=== PATIENT | male | born 1960 | race Caucasian/White ===

== ENCOUNTER 2019-06-22 00:49 | Observation (INO) | payer BC ==
[2019-06-22 01:40] LABS: ABSOLUTE BASOPHILS # (AUTO) 0.1 10^3/uL (0.0-0.2); ABSOLUTE EOSINOPHILS # (AUTO) 0.4 10^3/uL (0.0-0.6); ABSOLUTE NEUT (AUTO) 5.1 10^3/uL (1.7-8.2); BASOPHILS % (AUTO) 0.9 % (0-2); EOSINOPHILS % (AUTO) 4.4 % (0-6); HEMATOCRIT 44.6 % (37.9-51.0); HEMOGLOBIN 15.2 g/dL (13.5-17.0); LYMPHOCYTES % (AUTO) 31.5 % (13-45); MEAN CORPUSCULAR HEMOGLOBIN 31.2 pg (27.0-33.4); MEAN CORPUSCULAR HGB CONC 34.2 g/dL (32.0-36.0); MEAN CORPUSCULAR VOLUME 91 fl (80-97); MONOCYTES % (AUTO) 10.7 % (3-13); PLATELET COUNT 227 10^3/uL (150-450); RED BLOOD COUNT 4.88 10^6/uL (4.35-5.55); RED CELL DISTRIBUTION WIDTH 13.7 % (11.5-14.0); SEGMENTED NEUTROPHILS % (AUTO) 52.5 % (42-78); TOTAL CELLS COUNTED % (AUTO) 100 %; WHITE BLOOD COUNT 9.7 10^3/uL (4.0-10.5)
[2019-06-22 01:44] LABS: INTERNATIONAL RATION (INR) 0.95
[2019-06-22 01:45] LABS: PARTIAL THROMBOPLASTIN TIME 26.9 SEC (23.5-35.8)
[2019-06-22 01:47] LABS: PROTHROMBIN TIME 12.7 SEC (11.4-15.4)
--- NOTE | 2019-06-22 01:53 | ER Document Report ---
ED Alteplase Inc/Exc Criteria - Date/Time patient last known well: Date/Time: 06-22-2019, 00:50 - Inclusion Criteria: 1: Patient presented to ED within 3 hours of acute ischemic stroke symptom onset? -: No 2: Did baseline CT exclude intracranial hemorrhage and/or other risk factors? 3: Is the age of the patient 18 years of age or greater? -: Yes : If any of the above questions are answered "NO" then stop, patient is not a candidate for Alteplase, : If all of the above questions are answered "YES" then continue with Ex clusion Criteria. - Exclusion Criteria: 1: Is there evidence of intracranial hemorrhage on baseline CT? 2: Is there suspicion of subarachnoid hemorrhage (even if CT negative)? 3: Is there a history of serious head trauma, recent previous stroke or [place] within 3 months? 4: Does the patient have a clinical presentation consistent with [place] or post-[place] pericarditis? 5: Is there history of intracranial hemorrhage? 6: On repeated measurement is Systolic BP greater than 185mmHg or Diastolic BP greater that 110 mmHg and is aggressive treatment needed to reduce blood pressure to these limits (e.g. constant infusion of an anti-hypertensive)? 7: Did the patient awake with stroke symptoms? 8: Has the patient had a lumbar puncture or an arterial puncture at a non- compressile site within 7 days? 9: With in the last 14 days did the patient have surgery or major trauma? 10: Is the patient or less than 2 weeks? 11: Was there any active bleeding or acute trauma? 12: Does the patient have intracranial neoplasm, arteriovenous malformation or aneurysm? 13: Does the patient have abnormal glucose (less than 50 or greater than 400mg/dl)? Record glucose in Comment. 14: Patient has rapidly improving symptoms at the time Alteplase is to be Administered. 15: Does the patient have any risks for bleeding, including but not limited to: a.: Current use of Coumadin with PT greater than 15 seconds or INR greater than 1.7. b.: Current use of Pradaxa (Dabigatran). c.: Heparin administereed within the past 48 hours and PTT elevated. d.: Platelet count less than 100,000/mm. e.: Major surgery or serious trauma within 14 days. f.: Gastrointestinal or gynecological urinary bleeding within 14 days. g.: Myocardial Infarction ([place]) within 3 months. : If the answer to any of the above questions is "YES" then stop, the patient is not a candidate for Alteplase. : If the answer to all of the above questions is "NO" then the patient may be eligible for the Administration of Alteplase. : If the patient is noted to have seizure activity at onset of Stroke symptoms; Consult Neurologist for further evaluation. - The patient is: -: Included and is eligible to receive Alteplase. *Initiate bed placement at higher level of care* Reviewed risks & benefits of thrombolytic therapy: I have reviewed the risks and benefits of thrombolytic therapy with the patient and/or his/her family. -: Excluded and not eligible to receive Alteplase for the above exclusions. -: Excluded and not eligible to receive Alteplase for other reasons (specify in comments): - Diagnosis of TIA: -: Patient presented with transient symptoms that are now resolved and no other neurologic findings are currently present. List symptoms in comments. -: Patient is NOT a candidate for tPA. -: ____(put name in comment) has been consulted for admission and continued evaluation of risk factor assessment.
--- NOTE | 2019-06-22 01:54 | ER Document Report ---
ED Neuro Symptoms/Deficit - General Chief Complaint: S/S of Possible Stroke Stated Complaint: NUMBNESS ON RIGHT SIDE Time Seen by Provider: 06/22/19 01:44 Notes: Patient is a 58-year-old male that comes to the emergency department for chief complaint of strokelike symptoms. Patient states that at 1330 today he started noticing first in his lip and numbness and tingling sensation, then he started noticing the same in his cheek, forehead, right arm, and also right leg. He states that since symptoms onset they have not worsened but they have also not resolved. Outside of the focal numbness he denies any weakness. He denies visual changes, headache. He denies any other symptoms. Past medical history of hypertension, previously medicated but weaned off, does not currently have a primary care provider. He does not report any other medical diagnosis. He denies smoking, reports irregular alcohol, denies recreational drugs. He lives at home with his . TRAVEL OUTSIDE OF THE [place] IN LAST 30 DAYS: No - Related Data Allergies/Adverse Reactions: No Known Allergies Allergy (Unverified 06/22/19 01:22) Past Medical History - General Information source: Patient - Social History Smoking Status: Never Smoker Frequency of alcohol use: Rare Drug Abuse: None Lives with: Family Family History: Reviewed & Not Pertinent Patient has suicidal ideation: No Patient has homicidal ideation: No - Past Medical History Cardiac Medical History: Reports: Hx Hypertension Review of Systems - Review of Systems Constitutional: No symptoms reported EENT: No symptoms reported Cardiovascular: No symptoms reported Respiratory: No symptoms reported Gastrointestinal: No symptoms reported Genitourinary: No symptoms reported Male Genitourinary: No symptoms reported Musculoskeletal: No symptoms reported Skin: No symptoms reported Hematologic/Lymphatic: No symptoms reported Neurological/Psychological: See HPI Physical Exam - Vital signs Vitals: Pulse Ox 96 06/22/19 01:09 - Notes Notes: GENERAL: Alert, interacts well. No acute distress. HEAD: Normocephalic, atraumatic. EYES: Pupils equal, round, and reactive to light. Extraocular movements intact. ENT: Oral mucosa moist, tongue midline. Oropharynx unremarkable. Airway patent. LUNGS: Clear to auscultation bilaterally, no wheezes, rales, or rhonchi. No respiratory distress. HEART: Regular rate and rhythm. No murmur ABDOMEN: Soft, non-tender. Non-distended. Bowel sounds present in all 4 quadrants. GENITOURINARY: Deferred EXTREMITIES: Moves all 4 extremities spontaneously. No edema, normal radial and dorsalis pedis pulses bilaterally. No cyanosis. BACK: no cervical, thoracic, lumbar midline tenderness. No saddle anesthesia, normal distal neurovascular exam. Moves all extremities in full range of motion. NEUROLOGICAL: Alert and oriented x3. Normal speech. Normal [id number] te sting. Normal strength bilaterally. There does appear to be sensation deficit over the right side of the face, right arm especially hand, and also right leg and foot. Normal otherwise. PSYCH: Normal affect, normal mood. SKIN: Warm, dry, normal turgor. No rashes or lesions noted. Course - Re-evaluation Re-evalutation: Patient symptoms are concerning for acute CVA. Symptoms are subtle but persistent. Patient is well outside the window for TPA. He is hypertensive but he will be allowed to remain so with permissive hypertension in setting of suspected ischemic stroke. Chest x-ray unremarkable. CT showing possible old stroke. Remaining work-up unremarkable. Patient without decompensation during his stay and on reevaluation. I discussed with patient, discussed with Dr. De León, will discuss with hospitalist Dr. Tran for admission. Dr. Tran accepts patient for IMCU observation. Patient states appreciation and agreement. - Vital Signs Vital signs: Temp Pulse Resp BP Pulse Ox 60 15 183/95 H 99 06/22/19 01:27 06/22/19 01:27 06/22/19 01:27 06/22/19 01:27 - Laboratory Result Diagrams: 06/22/19 01:15 06/22/19 01:15 - EKG Interpretation by Me Additional EKG results interpreted by me: EKG shows sinus rhythm at a rate of 60, normal axis, QTC of 432. Borderline flipped T waves inferiorly and laterally. No ST segment change abnormalities. ED Alteplase Inc/Exc Criteria - Inclusion Criteria: 1: Patient presented to ED within 3 hours of acute ischemic stroke symptom onset? -: No 2: Did baseline CT exclude intracranial hemorrhage and/or other risk factors? -: Yes 3: Is the age of the patient 18 years of age or greater? -: Yes : If any of the above questions are answered "NO" then stop, patient is not a candidate for Alteplase, : If all of the above questions are answered "YES" then continue with Excl usion Criteria. - Exclusion Criteria: 1: Is there evidence of intracranial hemorrhage on baseline CT? 2: Is there suspicion of subarachnoid hemorrhage (even if CT negative)? 3: Is there a history of serious head trauma, recent previous stroke or [place] within 3 months? 4: Does the patient have a clinical presentation consistent with [place] or post-[place] pericarditis? 5: Is there history of intracranial hemorrhage? 6: On repeated measurement is Systolic BP greater than 185mmHg or Diastolic BP greater that 110 mmHg and is aggressive treatment needed to reduce blood pressure to these limits (e.g. constant infusion of an anti-hypertensive)? 7: Did the patient awake with stroke symptoms? 8: Has the patient had a lumbar puncture or an arterial puncture at a non- compressile site within 7 days? 9: With in the last 14 days did the patient have surgery or major trauma? 10: Is the patient or less than 2 weeks? 11: Was there any active bleeding or acute trauma? 12: Does the patient have intracranial neoplasm, arteriovenous malformation or aneurysm? 13: Does the patient have abnormal glucose (less than 50 or greater than 400mg/dl)? Record glucose in Comment. 14: Patient has rapidly improving symptoms at the time Alteplase is to be Administered. 15: Does the patient have any risks for bleeding, including but not limited to: a.: Current use of Coumadin with PT greater than 15 seconds or INR greater than 1.7. b.: Current use of Pradaxa (Dabigatran). c.: Heparin administereed within the past 48 hours and PTT elevated. d.: Platelet count less than 100,000/mm. e.: Major surgery or serious trauma within 14 days. f.: Gastrointestinal or gynecological urinary bleeding within 14 days. g.: Myocardial Infarction ([place]) within 3 months. : If the answer to any of the above questions is "YES" then stop, the patient is not a candidate for Alteplase. : If the answer to all of the above questions is "NO" then the patient may be eligible for the Administration of Alteplase. : If the patient is noted to have seizure activity at onset of Stroke symptoms; Consult Neurologist for further evaluation. - The patient is: -: Included and is eligible to receive Alteplase. *Initiate bed placement at [facility] level of care* Reviewed risks & benefits of thrombolytic therapy: I have reviewed the risks and benefits of thrombolytic therapy with the patient and/or his/her family. -: Excluded and not eligible to receive Alteplase for the above exclusions. -: Excluded and not eligible to receive Alteplase for other reasons (specify in comments): - Diagnosis of TIA: -: Patient presented with transient symptoms that are now resolved and no other neurologic findings are currently present. List symptoms in comments. -: Patient is NOT a candidate for tPA. -: ____(put name in comment) has been consulted for admission and continued evaluation of risk factor assessment. ED NIH Stroke Scale - NIH Stroke Scale When completed:: Before Alteplase *: 1. NIH scale should be completed with appropriate accompanying assessment tools. *: 2. The NIH should reflect what the patient is capable of doing and should not be coached by the clinician. 1a. Level of Consciousness: 0=Alert;keenly responsive -: 1=Drowsy -: 2=Obtunded -: 3=Coma/unresponsive or reflex to noxious stimuli. 1a. Responses: 0 1b. Orientation Questions: a. What month is it? -: b. How old are you? -: 0=Answers both questions correctly. -: 1=Answers one question correctly or patient is intubated or has orotracheal trauma. -: 2=Answers neither question correctly. 1b. Responses: 0 1c. Response to commands: a. Open and close eyes? -: b. Journeyman Carpenter and release hand? -: Credit is given despite weakness. Demonstration of task is permitted. Substitute command if hands cannot be used. -: 0=Performs both tasks correctly -: 1=Performs one task correctly -: 2=Performs neither task correctly 1c. Responses: 0 2. Gaze: Establish eye contact and instruct patient to "Follow my finger" -: 0=Normal -: 1=Partial gaze palsy. Gaze is abnormal in one or both eyes, but where forced deviation or total gaze paresis is not present. -: 2=Forced deviation or total gaze paresis. 2. Responses: 0 3. Visual Martinez: Sees fingers in all four quadrants. -: 0=No visual loss. -: 1=Partial hemianopsia. -: 2=Complete hemianopsia. -: 3=Bilateral hemianopsia (including Cortical blindness) 3. Responses: 0 4. Facial Movement: Instruct patient to: -: a. Show me your teeth -: b. Raise your eyebrows -: c. Close your eyes -: d. Smile -: 0=Normal symmetrical movement -: 1=Minor paralysis (flattened nasolabial fold, asymmetry on smiling). -: 2=Partial paralysis (total or near total paralysis of lower face). -: 3=Complete paralysis of upper and lower face 4. Responses: 0 5. Motor functions (left arm): Alternate sides and extend each arm with palms down (90 degrees if sitting or 45 degrees for supine). -: 0=No drift;limb holds for full 10 seconds. -: 1=Drift; limb holds but drifts down before full 10 seconds, but does not hit bed. -: 2=Some effort against gravity; limb cannot get to or maintain position. -: 3=No effort against gravity; limb falls. -: 4=No movement. -: UN=Amputation, joint fusion, explain in comments. 5. Responses (left arm): 0 5. Motor Functions (right arm): Alternate sides and extend each arm with palms down (90 degrees if sitting or 45 degrees for supine). -: 0=No drift;limb holds for full 10 seconds. -: 1=Drift; limb holds but drifts down before full 10 seconds, but does not hit bed. -: 2=Some effort against gravity; limb cannot get to or maintain position. -: 3=No effort against gravity; limb falls. -: 4=No movement. -: UN=Amputation, joint fusion, explain in comments. 5. Responses (right arm): 0 6. Motor Functions (left leg): With patient lying supine, alternate sides and extend each leg (30 degrees always while supine). -: 0=No drift, leg holds position for full 5 seconds -: 1=Drift; leg falls before full 5 seconds but does not hit bed. -: 2=Some effort against gravity, leg falls to bed but some effort against gravity. -: 3=No effort against gravity, leg falls to bed immediately. -: 4=No movement. -: UN=Amputation, joint fusion; explain in comments. 6. Responses (left leg): 0 6. Motor Functions (right leg): With patient lying supine, alternate sides and extend each leg (30 degrees always while supine). -: 0=No drift, leg holds position for full 5 seconds -: 1=Drift; leg falls before full 5 seconds but does not hit bed. -: 2=Some effort against gravity, leg falls to bed but some effort against gravity. -: 3=No effort against gravity, leg falls to bed immediately. -: 4=No movement. -: UN=Amputation, joint fusion; explain in comments. 6. Responses (right leg): 0 7. Limb Ataxia: With eyes open instruct patient to: -: a. "Touch your finger to your nose". -: b. "Touch your heel to your cooper" -: 0=Absent -: 1=Present in one limb. -: 2=Present in two limbs. -: UN=Amputation or joint fusion; explain in comments. 7. Responses: 0 8. Sensory: Test sensation using pinprick or noxious stimuli. Test as many body parts as possible. -: 0=Normal;no sensory loss -: 1=Mile to moderate sensory loss (patient feels pin prick but is less sharp on affected side). -: 2=Severe or total sensory loss. 8. Responses: 1 9. Best Language: Instruct patient to: -: a. "Describe what you see in this picture." -: b. "Name the items in this picture." -: c. "Read these sentences." -: 0=No aphasia, normal -: 1=Mild to moderate aphasia. -: 2=Severe aphasia -: 3=Mute, global aphasia, no usable speech or auditory comprehension. 9. Responses: 0 10. Articulation, Dysarthia: Instruct patient to: -: "Read these words" or "Repeat these words" -: 0=Normal -: 1=Mild to moderate; patient may slur some words but can be understood without difficulty. -: 2=Severe; patients speech so slurred as to be unintelligible in the absence of dysphasia. -: UN=Intubated or other physical barrier, explain in comments. 10. Responses: 0 11. Extinction or inattention: 0=No abnormality -: 1= Visual, tactile, auditory, spatial, or personal inattention or extinction to bilateral simulation in one or the sensory modalities. -: 2=Profound renae-inattention or renae-inattention to more than one modality; does not recognize own hand. 11. Responses: 0 Total Score: 1 Discharge - Discharge Clinical Impression: Numbness on right side, Essential hypertension Condition: Stable Disposition: ADMITTED OBSERVATION Admitting Provider: Marc (Hospitalist) Unit Admitted: [facility]
[2019-06-22 01:57] LABS: ALBUMIN 4.2 g/dL (3.5-5.0); ALKALINE PHOSPHATASE 62 U/L (38-126); ANION GAP 7 (5-19); ASPARTATE AMINO TRANSFERASE 42 U/L (17-59); BILIRUBIN,DIRECT 0.1 mg/dL (0.0-0.4); BILIRUBIN,TOTAL 0.3 mg/dL (0.2-1.3); BLOOD UREA NITROGEN 13 mg/dL (7-20); CALCIUM 9.7 mg/dL (8.4-10.2); CARBON DIOXIDE 30 mmol/L (22-30); CHLORIDE 104 mmol/L (98-107); CREATINE KINASE 347 U/L (55-170); GLUCOSE 109 mg/dL (75-110); POTASSIUM 3.9 mmol/L (3.6-5.0)
[2019-06-22 02:09] LABS: CREATINE KINASE MB 4.71 ng/mL (<4.55)
[2019-06-22 02:10] LABS: TROPONIN I < 0.012 ng/mL
--- NOTE | 2019-06-22 02:49 | RADIOLOGY REPORT (SQ) ---
CT HEAD WITHOUT IV CONTRAST EXAM DATE: 06/22/2019 1:30 AM [employer] HISTORY: Right facial and body numbness. COMPARISON: None. TECHNIQUE: CT scan of the brain without IV contrast. This exam was performed according to our departmental dose-optimization program, which includes automated exposure control, adjustment of the mA and/or kV according to patient size and/or use of iterative reconstruction technique. FINDINGS: The ventricles, cisterns, and sulci are age-appropriate. 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 No evidence of acute infarction, intracranial hemorrhage, extra-axial fluid collection, or midline shift. Mild mucosal disease in the left sphenoid sinus. No depressed skull fracture. IMPRESSION: 1. No acute intracranial findings. 2. Sinus mucosal inflammatory disease.
[2019-06-22] MEDS ORDERED: ACETAMINOPHEN 325 MG TABLET PO PRN (03:45)
[2019-06-22] MEDS ORDERED: MAGNESIUM HYDROXIDE SUSP 30 ML UDCUP PO PRN (03:45)
[2019-06-22] MEDS ORDERED: DOCUSATE SODIUM 100 MG CAPSULE PO PRN (03:45)
[2019-06-22] MEDS ORDERED: ATORVASTATIN CALCIUM 80 MG TABLET PO ONE (04:00)
--- NOTE | 2019-06-22 04:39 | RADIOLOGY REPORT (SQ) ---
Chest single view on 06/22/2019 at 3:29 AM CLINICAL INDICATION: CVA workup, right-sided numbness COMPARISON: None FINDINGS: Heart is borderline in size. Mildly tortuous aorta is noted. The lungs are clear. Hilar and mediastinal contours are within normal limits. Pulmonary vascularity is within normal limits. IMPRESSION: No acute disease.
--- NOTE | 2019-06-22 06:09 | PDOC H&P ---
History of Present Illness Admission Date/PCP: 06/22/19 04:07 Patient complains of: Right-sided numbness History of Present Illness: KERRY ASCENCIO is a 58 year old male with a past medical history of hypertension without current medication who presents with 12 hours of numbness to the right side of his body. He denies palpitations, difficulty swallowing, word finding difficulty, focal weakness or previous episode. He denies recent medication use and is otherwise felt well. In the emergency room he is found to have uncontrolled hypertension with persistent symptoms. CT head is suggestive of old infarct. He is referred to the hospitalist for admission. Past Medical History Cardiac Medical History: Reports: Hypertension Pulmonary Medical History: Reports: None EENT Medical History: Reports: None Neurological Medical History: Reports: None Renal/ Medical History: Reports: None Malignancy Medical History: Reports: None GI Medical History: Reports: None Musculoskeltal Medical History: Reports: None Skin Medical History: Reports: None Psychiatric Medical History: Reports: None Traumatic Medical History: Reports: None Hematology: Reports: None Infectious Medical History: Reports: None Past Surgical History Past Surgical History: Reports: None Social History Information Source: Patient Smoking Status: Never Smoker Frequency of Alcohol Use: None Drugs: None - Advance Directive Resuscitation Status: Full Code Family History Family History: Hypertension Parental Family History Reviewed: Yes Children Family History Reviewed: Yes Sibling(s) Family History Reviewed.: Yes Medication/Allergy Home Medications: No Home Medications 06/22/19 Allergies/Adverse Reactions: No Known Allergies Allergy (Unverified 06/22/19 01:22) Review of Systems Constitutional: ABSENT: chills, fever(s), headache(s), weight gain, weight loss Eyes: ABSENT: visual disturbances Ears: ABSENT: hearing changes Cardiovascular: ABSENT: chest pain, dyspnea on exertion, edema, orthropnea, palpitations Respiratory: ABSENT: cough, hemoptysis Gastrointestinal: ABSENT: abdominal pain, constipation, diarrhea, hematemesis, hematochezia, nausea, vomiting Genitourinary: ABSENT: dysuria, hematuria Musculoskeletal: ABSENT: joint swelling Integumentary: ABSENT: rash, wounds Neurological: ABSENT: abnormal gait, abnormal speech, confusion, dizziness, focal weakness, syncope Psychiatric: ABSENT: anxiety, depression, homidical ideation, suicidal ideation Endocrine: ABSENT: cold intolerance, heat intolerance, polydipsia, polyuria Hematologic/Lymphatic: ABSENT: easy bleeding, easy bruising Physical Exam Vital Signs: Temp Pulse Resp BP Pulse Ox 98.3 F 62 14 158/103 H 97 06/22/19 04:56 06/22/19 04:34 06/22/19 05:01 06/22/19 05:01 06/22/19 05:01 Intake & Output 06/20/19 06/21/19 06/22/19 11:59 11:59 11:59 Weight 89.8 kg General appearance: PRESENT: no acute distress, well-developed, well-nourished Head exam: PRESENT: atraumatic, normocephalic Eye exam: PRESENT: conjunctiva pink, EOMI, PERRLA. ABSENT: scleral icterus Ear exam: PRESENT: normal external ear exam Mouth exam: PRESENT: moist, tongue midline Neck exam: ABSENT: carotid bruit, JVD, lymphadenopathy, thyromegaly Respiratory exam: PRESENT: clear to auscultation rich. ABSENT: rales, rhonchi, wheezes Cardiovascular exam: PRESENT: RRR. ABSENT: diastolic murmur, rubs, systolic murmur Pulses: PRESENT: normal dorsalis pedis pul Vascular exam: PRESENT: normal capillary refill GI/Abdominal exam: PRESENT: normal bowel sounds, soft. ABSENT: distended, guarding, mass, organolmegaly, rebound, tenderness Rectal exam: PRESENT: deferred Extremities exam: PRESENT: full ROM. ABSENT: calf tenderness, clubbing, pedal edema Neurological exam: PRESENT: alert, awake, oriented to person, oriented to place, oriented to time, oriented to situation, CN II-XII grossly intact. ABSENT: motor sensory deficit Psychiatric exam: PRESENT: appropriate affect, normal mood. ABSENT: homicidal ideation, suicidal ideation Skin exam: PRESENT: dry, intact, warm. ABSENT: cyanosis, rash Results Laboratory Results: 06/22/19 01:15 06/22/19 01:15 06/22/19 06/22/19 06/22/19 01:15 01:15 01:15 WBC 9.7 RBC 4.88 Hgb 15.2 Hct 44.6 MCV 91 MCH 31.2 MCHC 34.2 RDW 13.7 Plt Count 227 Seg Neutrophils % 52.5 Sodium 141.3 Potassium 3.9 Chloride 104 Carbon Dioxide 30 Anion Gap 7 BUN 13 Creatinine 1.00 Est GFR ( Amer) > 60 Glucose 109 Calcium 9.7 Total Bilirubin 0.3 AST 42 Alkaline Phosphatase 62 Total Protein 8.0 Albumin 4.2 TSH 4.94 H 06/22/19 06/22/19 01:15 01:15 Creatine Kinase 347 H CK-MB (CK-2) 4.71 H Troponin I < 0.012 Impressions: Head CT 06/22/19 01:30 IMPRESSION: 1. No acute intracranial findings. 2. Sinus mucosal inflammatory disease. Chest X-Ray 06/22/19 03:06 IMPRESSION: No acute disease. Assessment and Plan - Diagnosis (1) TIA (transient ischemic attack) Is this a current diagnosis for this admission?: Yes Plan: Observation with CVA care set. Follow-up MRI, carotid Doppler, TSH and lipid profile. Aspirin and to ordered (2) Essential hypertension Is this a current diagnosis for this admission?: Yes Plan: Permissive hypertension (3) Numbness on right side Is this a current diagnosis for this admission?: Yes Plan: Secondary #1 - Time Time Spent with patient: 25-34 minutes - Inpatient Certification Medical Necessity: Need Close Monitoring Due to Risk of Patient Decompensation
[2019-06-22 07:16] LABS: CHOLESTEROL 173.62 mg/dL (0-200); TRIGLYCERIDES 100 mg/dL (<150)
[2019-06-22 07:26] LABS: DIRECT LDL 120 mg/dL (<100)
--- NOTE | 2019-06-22 12:05 | EKG REPORT ---
SEVERITY:- ABNORMAL ECG - SINUS RHYTHM BORDERLINE LEFT AXIS DEVIATION PROMINENT 'U' WAVES.CHECK POTASSIUM : Confirmed by: Yulissa Da Silva MD 22-Jun-2019 12:04:44
[2019-06-22] MEDS: HEPARIN SOD (PORCINE) 5,000 UNIT/ML 1 ML VIAL SUBCUT SCH ×3 (12:43→21:57)
--- NOTE | 2019-06-22 14:30 | RADIOLOGY REPORT (SQ) ---
EXAM DESCRIPTION: MRI HEAD WITHOUT COMPLETED DATE/TIME: 06/22/2019 12:20 pm REASON FOR STUDY: Left side numb COMPARISON: None. TECHNIQUE: Multiplanar imaging includes non-contrasted T1, T2, FLAIR, and Diffusion with ADC map seq uences. Images stored on PACS. LIMITATIONS: None. FINDINGS: ANATOMY: No anomalies. Normal vascular flow voids. Pituitary fossa normal. CSF SPACES: Normal in size and contour. No hemorrhage. CEREBRUM: A few high-signal intensity lesions scattered throughout the white matter on FLAIR imaging with distribution suggesting chronic micro-vascular ischemic change. Sulci and gyri normal in size a nd contour. No evidence of hemorrhage, mass or extraaxial fluid collection. POSTERIOR FOSSA: No signal alteration. No hemorrhage. No edema, masses or mass effect. Internal willi tory canals, cerebello-pontine angles, mastoids normal. DIFFUSION: 5 mm focus of abnormal high signal on diffusion in the left thalamus. ORBITS: No masses. Globes normal. PARANASAL SINUSES: No fluid levels. Mucosa normal. OTHER: No other significant finding. IMPRESSION: Small nonhemorrhagic lacunar infarct left thalamus. EVIDENCE OF ACUTE STROKE: YES. LEFT MCA. TECHNICAL DOCUMENTATION: JOB ID: [id number] [employer]- All Rights Reserved Reading location - IP/workstation name: [email or web address]
[2019-06-22] MEDS ORDERED: ATORVASTATIN CALCIUM 80 MG TABLET PO SCH (22:00)
[2019-06-23] MEDS: HEPARIN SOD (PORCINE) 5,000 UNIT/ML 1 ML VIAL SUBCUT SCH (06:27)
[2019-06-23 07:49] VITALS: BP 166/84
[2019-06-23] MEDS ORDERED: LISINOPRIL 10 MG TABLET PO SCH (10:00)
[2019-06-23] MEDS ORDERED: ASPIRIN 81 MG TABLET, ENT COATED PO SCH (10:00)
--- NOTE | 2019-06-23 17:13 | PDOC DISCHARGE SUMMARY ---
Impression - Admit/DC Date/PCP Admission Date/Primary Care Provider: 06/22/19 04:07 Discharge Date: 06/23/19 - Discharge Diagnosis (1) Acute ischemic stroke Is this a current diagnosis for this admission?: Yes (2) Essential hypertension Is this a current diagnosis for this admission?: Yes - Additional Information Resuscitation Status: Full Code Discharge Diet: Cardiac Discharge Activity: Activity As Tolerated, Balance Activity w/Rest Referrals: ELENA MILAN MD [COMMUNITY BASED STAFF] - 06/26/19 9:30 am (1-2 weeks) Prescriptions: Atorvastatin Calcium [Lipitor 20 mg Tablet] 20 mg PO QHS #30 tablet Lisinopril [Prinivil 10 mg Tablet] 10 mg PO DAILY #30 tablet Home Medications: Aspirin [Ecotrin 81 mg EC Tablet] 81 mg PO DAILY tabec 06/23/19 Atorvastatin Calcium [Lipitor 20 mg Tablet] 20 mg PO QHS #30 tablet 06/23/19 Lisinopril [Prinivil 10 mg Tablet] 10 mg PO DAILY #30 tablet 06/23/19 History of Present Illiness History of Present Illness: KERRY ASCENCIO is a 58 year old male with a past medical history of hypertension without current medication who presents with 12 hours of numbness to the right side of his body. He denies palpitations, difficulty swallowing, word finding difficulty, focal weakness or previous episode. He denies recent medication use and is otherwise felt well. In the emergency room he is found to have uncontro lled hypertension with persistent symptoms. CT head is suggestive of old infarct. He is referred to the hospitalist for admission. Hospital Course Hospital Course: His symptoms have resolved completely with the exception of a little bit of tingling on his right side. His MRI was positive for a left lacunar thalamic stroke. He was started on aspirin and a statin. We watched his blood pressure and it was elevated after the first 24 hours and so we started him on some lisinopril. He does not have a primary care provider but his and daughter both see Dr. Milan so he requested to follow-up at that office. He did not require any further speech therapy, Occupational Therapy, or physical therapy. His labs and examination were reassuring he was discharged in good condition. Physical Exam Vital Signs: Temp Pulse Resp BP Pulse Ox 97.5 F 67 16 166/84 H 97 06/23/19 10:35 06/23/19 10:35 06/23/19 10:35 06/23/19 08:00 06/23/19 10:35 Intake & Output 06/22/19 06/23/19 06/24/19 06:59 06:59 06:59 Intake Total 1180 Balance 1180 Weight 100 kg 100.6 kg General appearance: PRESENT: no acute distress, cooperative, obese Respiratory exam: PRESENT: clear to auscultation rich, symmetrical, unlabored. ABSENT: accessory muscle use, chest wall tenderness, crackles, prolonged expiratory phas, rhonchi, tachypnea, wheezes Cardiovascular exam: PRESENT: RRR, +S1, +S2 Pulses: PRESENT: normal carotid pulses Vascular exam: PRESENT: normal capillary refill GI/Abdominal exam: PRESENT: normal bowel sounds, soft. ABSENT: distended, guarding, rebound, tenderness Extremities exam: ABSENT: clubbing, pedal edema Musculoskeletal exam: PRESENT: ambulatory, normal inspection. ABSENT: deformity Neurological exam: PRESENT: alert, awake, oriented to person, oriented to place, oriented to situation Psychiatric exam: PRESENT: appropriate affect, normal mood Skin exam: PRESENT: dry, warm Results Laboratory Results: WBC 9.7 10^3/uL (4.0-10.5) 06/22/19 01:15 RBC 4.88 10^6/uL (4.35-5.55) 06/22/19 01:15 Hgb 15.2 g/dL (13.5-17.0) 06/22/19 01:15 Hct 44.6 % (37.9-51.0) 06/22/19 01:15 MCV 91 fl (80-97) 06/22/19 01:15 MCH 31.2 pg (27.0-33.4) 06/22/19 01:15 MCHC 34.2 g/dL (32.0-36.0) 06/22/19 01:15 RDW 13.7 % (11.5-14.0) 06/22/19 01:15 Plt Count 227 10^3/uL (150-450) 06/22/19 01:15 Lymph % (Auto) 31.5 % (13-45) 06/22/19 01:15 [place] % (Auto) 10.7 % (3-13) 06/22/19 01:15 Eos % (Auto) 4.4 % (0-6) 06/22/19 01:15 Baso % (Auto) 0.9 % (0-2) 06/22/19 01:15 Absolute Neuts (auto) 5.1 10^3/uL (1.7-8.2) 06/22/19 01:15 Absolute Lymphs (auto) 3.0 10^3/uL (0.5-4.7) 06/22/19 01:15 Absolute Monos (auto) 1.0 10^3/uL (0.1-1.4) 06/22/19 01:15 Absolute Eos (auto) 0.4 10^3/uL (0.0-0.6) 06/22/19 01:15 Absolute Basos (auto) 0.1 10^3/uL (0.0-0.2) 06/22/19 01:15 Seg Neutrophils % 52.5 % (42-78) 06/22/19 01:15 PT 12.7 SEC (11.4-15.4) 06/22/19 01:15 INR 0.95 06/22/19 01:15 APTT 26.9 SEC (23.5-35.8) 06/22/19 01:15 Sodium 141.3 mmol/L (137-145) 06/22/19 01:15 Potassium 3.9 mmol/L (3.6-5.0) 06/22/19 01:15 Chloride 104 mmol/L (98-107) 06/22/19 01:15 Carbon Dioxide 30 mmol/L (22-30) 06/22/19 01:15 Anion Gap 7 (5-19) 06/22/19 01:15 BUN 13 mg/dL (7-20) 06/22/19 01:15 Creatinine 1.00 mg/dL (0.52-1.25) 06/22/19 01:15 Est GFR ( Amer) > 60 (>60) 06/22/19 01:15 Est GFR (MDRD) Non-Af > 60 (>60) 06/22/19 01:15 Glucose 109 mg/dL (75-110) 06/22/19 01:15 Calcium 9.7 mg/dL (8.4-10.2) 06/22/19 01:15 Total Bilirubin 0.3 mg/dL (0.2-1.3) 06/22/19 01:15 Direct Bilirubin 0.1 mg/dL (0.0-0.4) 06/22/19 01:15 Neonat Total Bilirubin Not Reportable 06/22/19 01:15 Neonat Direct Bilirubin Not Reportable 06/22/19 01:15 Neonat Indirect Bili Not Reportable 06/22/19 01:15 AST 42 U/L (17-59) 06/22/19 01:15 ALT 54 U/L (<50) 06/22/19 01:15 Alkaline Phosphatase 62 U/L (38-126) 06/22/19 01:15 Creatine Kinase 347 U/L (55-170) H 06/22/19 01:15 CK-MB (CK-2) 4.71 ng/mL (<4.55) H 06/22/19 01:15 Troponin I < 0.012 ng/mL 06/22/19 01:15 Total Protein 8.0 g/dL (6.3-8.2) 06/22/19 01:15 Albumin 4.2 g/dL (3.5-5.0) 06/22/19 01:15 Triglycerides 100 mg/dL (<150) 06/22/19 06:46 Cholesterol 173.62 mg/dL (0-200) 06/22/19 06:46 LDL Cholesterol Direct 120 mg/dL (<100) H 06/22/19 06:46 VLDL Cholesterol 20.0 mg/dL (10-31) 06/22/19 06:46 HDL Cholesterol 35 mg/dL (>40) L 06/22/19 06:46 TSH 4.94 uIU/mL (0.47-4.68) H 06/22/19 01:15 06/22/19 01:15 CK-MB (CK-2) 4.71 H Troponin I < 0.012 Impressions: Head MRI 06/22/19 00:00 IMPRESSION: Small nonhemorrhagic lacunar infarct left thalamus. EVIDENCE OF ACUTE STROKE: YES. LEFT MCA. Head CT 06/22/19 01:30 IMPRESSION: 1. No acute intracranial findings. 2. Sinus mucosal inflammatory disease. Chest X-Ray 06/22/19 03:06 IMPRESSION: No acute disease. Plan Time Spent: Greater than 30 Minutes Stroke Is this a Stroke Patient?: Yes Stroke Pt being discharged on Anti-thrombolytic therapy?: Yes Stroke Pt being discharged on Anti-coagulation therapy?: No Reason(s) for not prescribing Anti-coagulation therapy:: Not indicated Stroke Pt being discharged on Statins?: Yes Acute Heart Failure - Is this a Heart Failure Patient?: No
== END 2019-06-23 11:11 | disposition home or self-care (01) ==
LOC: ER 00:49 → EH 04:07 → INTOOBSV 04:07 → 3W 05:35
PROVIDERS: ADMIT Internal Medicine; ATTEND Internal Medicine
DX: I63.81 Other cerebral infarction due to occlusion or stenosis of small artery (principal); R20.2 Paresthesia of skin; R20.0 Anesthesia of skin; I10 Essential (primary) hypertension; E66.9 Obesity, unspecified; Z79.82 Long term (current) use of aspirin; Z79.899 Other long term (current) drug therapy; Z82.49 Family history of ischemic heart disease and other diseases of the circulatory system
CPT/HCPCS: 93005; 99285; 36415; 82553; 82550; 84443; 85025; 85610; 85730; 80053; 84484; 80061; 70551; 71045; 70450; 93010; 92522; G0378 ×3; J1644 ×2; J3490 ×2

== ENCOUNTER → 2019-07-01 | Outpatient (CLI) | payer BC ==
--- NOTE | 2019-07-01 09:04 | RADIOLOGY REPORT (SQ) ---
EXAM DESCRIPTION: CAROTID DOPPLER COMPLETED DATE/TIME: 07/01/2019 8:42 am REASON FOR STUDY: CVA I63.9 CEREBRAL INFARCTION, UNSPECIFIED COMPARISON: None. TECHNIQUE: Grayscale ultrasound, Doppler velocity and spectra, and color Doppler images acquired of the extra-cranial carotid and vertebral arteries. Images stored on PACS. LIMITATIONS: None. FINDINGS: RIGHT CAROTID CCA Velocities: Within normal limits. ICA Velocities Peak systolic 115 cm/s. End diastolic 42 cm/s. Proximal ICA/CCA peak systolic ratio 1.0. Mild intimal thickening in the distal common carotid artery. LEFT CAROTID CCA Velocities: Within normal limits. ICA Velocities Peak systolic 89 cm/s. End diastolic 33 cm/s. Proximal ICA/CCA peak systolic ratio 1.1. There is intimal thickening. VERTEBRAL ARTERIES: Antegrade flow. Normal waveforms. SUBCLAVIAN ARTERIES: No finding. OTHER: No other significant finding. IMPRESSION: NO HEMODYNAMICALLY SIGNIFICANT STENOSIS. COMMENT: Quality ID #[id number]: Velocity criteria are extrapolated from the diameter data as defined by t he Society of Radiologists in Ultrasound Consensus Conference. Radiology 2003: 229; 340-346. TECHNICAL DOCUMENTATION: JOB ID: [id number] [employer]- All Rights Reserved Reading location - IP/workstation name: [email or web address]
== END ==
LOC: SP 07:55
PROVIDERS: ATTEND Family Medicine Geriatric Medicine
DX: I63.9 Cerebral infarction, unspecified (principal)
CPT/HCPCS: 93880

== ENCOUNTER → 2019-12-19 | Outpatient (CLI) | payer BC ==
[2019-12-19 08:37] LABS: ABSOLUTE BASOPHILS # (AUTO) 0.1 10^3/uL (0.0-0.2); ABSOLUTE EOSINOPHILS # (AUTO) 0.4 10^3/uL (0.0-0.6); ABSOLUTE MONOCYTES (AUTO) 0.8 10^3/uL (0.1-1.4); ABSOLUTE NEUT (AUTO) 4.4 10^3/uL (1.7-8.2); BASOPHILS % (AUTO) 0.9 % (0-2); EOSINOPHILS % (AUTO) 4.7 % (0-6); HEMATOCRIT 43.2 % (37.9-51.0); HEMOGLOBIN 14.7 g/dL (13.5-17.0); LYMPHOCYTES % (AUTO) 26.6 % (13-45); MEAN CORPUSCULAR HEMOGLOBIN 31.5 pg (27.0-33.4); MEAN CORPUSCULAR HGB CONC 33.9 g/dL (32.0-36.0); MEAN CORPUSCULAR VOLUME 93 fl (80-97); MONOCYTES % (AUTO) 10.1 % (3-13); PLATELET COUNT 232 10^3/uL (150-450); RED BLOOD COUNT 4.65 10^6/uL (4.35-5.55); RED CELL DISTRIBUTION WIDTH 12.8 % (11.5-14.0); SEGMENTED NEUTROPHILS % (AUTO) 57.7 % (42-78); TOTAL CELLS COUNTED % (AUTO) 100 %; WHITE BLOOD COUNT 7.6 10^3/uL (4.0-10.5)
[2019-12-19 09:01] LABS: ANION GAP 6 (5-19); BLOOD UREA NITROGEN 19 mg/dL (7-20); CALCIUM 9.4 mg/dL (8.4-10.2); CARBON DIOXIDE 30 mmol/L (22-30); CHLORIDE 104 mmol/L (98-107); CHOLESTEROL 120.64 mg/dL (0-200); GLUCOSE 107 mg/dL (75-110); POTASSIUM 4.7 mmol/L (3.6-5.0); TRIGLYCERIDES 66 mg/dL (<150)
[2019-12-19 09:12] LABS: DIRECT LDL 77 mg/dL (<100)
== END ==
LOC: OD 08:04
PROVIDERS: ATTEND Family Medicine Geriatric Medicine
DX: I10 Essential (primary) hypertension (principal); E78.5 Hyperlipidemia, unspecified; Z79.899 Other long term (current) drug therapy
CPT/HCPCS: 36415; 80048; 80061; 84460; 85025